=== PATIENT | female | born 1950 | race Caucasian/White ===

== ENCOUNTER 2020-09-04 15:17 | Outpatient (CLI) | payer MEDICARE, OTHER ==
--- NOTE | 2020-09-04 15:56 | RAD ---
LUMBAR SPINE TWO VIEW: 09/04/20 HISTORY: Lumbar radiculopathy. COMPARISON: None. FINDINGS: No acute fracture or malalignment. Grade II L4-5 anterolisthesis. Degenerative in nature from facet a rthropathy approximately 1 cm. Moderate SI joint degenerative changes bilaterally. Moderate to severe L4-5 and L5-S1 facet arthrosis. Narrowed interspinous space L1-L5 with cortical sclerosis and subcortical cyst formation. Severe L5-S1 degenerative disc space height loss. Some mild L3-4, L2-3 and L1-2 posterior degenerativ e disc space height loss. IMPRESSION: Moderate to advanced spondylosis as described with grade II L4-5 anterolisthesis. POS: [facility]
--- NOTE | 2020-09-04 16:40 | MRI ---
MRI lumbar spine noncontrast: HISTORY: Lumbar radiculopathy. Low back pain x20 years, worsening recently. COMPARISON: None FINDINGS: Appropriate T1 marrow signal intensity of the lumbar vertebra. Lumbar spine vertebral body height is maintained. There is no fracture. There is facet hypertrophy at L3-L4, L4-L5 and L5-S1. There is associated 0.8 cm of anterolisthesis of L4 upon L5. No associated spondylolysis. There is mild edema involving the left and right pedicle at L5 likely due to mechanical stresses. No significant STIR hyperintensity to suggest ligamentous injury or vertebral body edema resulting from fracture. Conus medullaris terminates at the mid to lower aspect of L1. Appropriate signal intensity of the visualized solid organs and paraspinal muscles. T12-L1:Adequate disc hydration. No significant central canal stenosis or significant neural foraminal narrowing L1-L2:Minimal disc desiccation with mild loss of disc space height. No posterior disc abnormality. No significant central canal stenosis. No significant neural foraminal narrowing L2-L3:Adequate disc hydration. No posterior disc abnormality. No significant central canal stenosis o r significant neural foraminal narrowing. L3-L4:Minimal disc desiccation without significant loss of disc space height. Broad-based disc bulge, ligamentum flavum thickening and facet hypertrophy result in mild central canal stenosis. Mild bilateral neural foraminal narrowing due to disc material L4-L5:Disc desiccation without significant loss of disc space height. Broad-based disc bulge, ligamen carli flavum thickening and facet hypertrophy. There is fluid in both facet joints. There is a posterior right synovial cyst measuring 0.5 cm. Overall there is moderate to severe central canal kori nosis. Moderate right and mild left neural foraminal narrowing. There is an annular fissure involving the right foraminal disc. Annular fissure abuts the foraminal right L4 nerve root. L5-S1:Disc desiccation without significant loss of disc space height. Minimal broad-based disc bulge without significant central canal stenosis. There is bilateral facet hypertrophy. Small amount of fluid in both facet joints. Right neural foramen is patent. There is an annular fissure involving the left foraminal aspect of the disc. Annular fissure abuts the foraminal left L5 nerve root. Mild to moderate left neural foraminal narrowing. IMPRESSION: 1. Multilevel degenerative changes of the lumbar spine as detailed above. 2. Annular fissure involving the right foraminal L4-L5 disc. Annular fissure abuts the right foramina l L4 nerve root. 3. Annular fissure involving the left foraminal aspect of the L5-S1 disc. Annular fissure abuts the f oraminal left L5 nerve root.
== END 2020-09-04 15:18 | disposition home or self-care (01) ==
LOC: BICMRI 15:17
PROVIDERS: ATTEND Surgery
DX: M47.26 Other spondylosis with radiculopathy, lumbar region (principal); M43.16 Spondylolisthesis, lumbar region; M51.16 Intervertebral disc disorders with radiculopathy, lumbar region
CPT/HCPCS: 72100; 72148

== ENCOUNTER 2020-12-25 13:45 | Outpatient (CLI) | payer MEDICARE, OTHER ==
[~2020-12-25 13:45] MED LIST: Magnevist 469MG/ML 20 ML VIAL ONE
== END 2020-12-25 13:46 | disposition home or self-care (01) ==
LOC: BICMRI 13:45
PROVIDERS: ATTEND Otolaryngology Plastic Surgery within the Head & Neck
DX: H90.5 Unspecified sensorineural hearing loss (principal); J30.9 Allergic rhinitis, unspecified; D36.10 Benign neoplasm of peripheral nerves and autonomic nervous system, unspecified
CPT/HCPCS: 70553; 82565; A9579